=== PATIENT | male | born 1980 | race Caucasian/White ===

== ENCOUNTER 2016-11-20 10:36 | Emergency (ER) | payer BC ==
[2016-11-20 13:31] VITALS: BP 121/69
--- NOTE | 2016-11-20 13:45 | UC ---
UC General HPI - HPI Summary HPI Summary: patient started getting bodyaches, fever, headache and sinus pressure over the past three days. - History of Current Complaint Chief Complaint: UCGeneralIllness Stated Complaint: THROAT,SINUSES Time Seen by Provider: 11/20/16 13:26 Hx Obtained From: Patient Onset/Duration: Sudden Onset, Lasting Days Timing: Constant Onset Severity: Moderate Current Severity: Severe Pain Intensity: 8 Pain Location at: muscle aches and headache Associated Signs & Symptoms: Positive: Cough, Fever, Headache - Allergy/Home Medications Allergies/Adverse Reactions: Allergies Allergy/AdvReac Type Severity Reaction Status Date / Time Penicillins Allergy Intermediate Swelling Verified 11/20/16 13:31 Home Medications: Home Medications Dayquil 1 dose ONCE 11/20/16 [History Confirmed 11/20/16] PMH/Surg Hx/FS Hx/Imm Hx Previously Healthy: Yes - Surgical History Surgical History: Yes Surgery Procedure, Year, and Place: hernia - Family History Known Family History: Negative: Cardiac Disease, Hypertension - Social History Alcohol Use: Occasionally Substance Use Type: None Smoking Status (MU): Former Smoker Type: Smokeless Tobacco Amount Used/How Often: random usage, more so in summer months Length of Time of Smoking/Using Tobacco: 10 yrs Have You Smoked in the Last Year: Yes When Did the Patient Quit Smoking/Using Tobacco: 15 years ago - Immunization History Most Recent Influenza Vaccination: none Review of Systems Constitutional: Fever, Chills, Fatigue Skin: Negative Eyes: Eye Redness ENT: Sore Throat, Ear Ache, Nasal Discharge Respiratory: Cough Cardiovascular: Negative Gastrointestinal: Negative Genitourinary: Negative Motor: Negative Neurovascular: Negative Musculoskeletal: Myalgia Neurological: Headache Psychological: Negative All Other Systems Reviewed And Are Negative: Yes Physical Exam Triage Information Reviewed: Yes Appearance: Well-Nourished, Ill-Appearing, Pain Distress Vital Signs: Initial Vital Signs Temp 100.1 F 11/20/16 13:26 Pulse 108 11/20/16 13:26 Resp 17 11/20/16 13:26 BP 121/69 11/20/16 13:26 Pulse Ox 97 11/20/16 13:26 Vital Signs Reviewed: Yes Eye Exam: Normal Eyes: Positive: Conjunctiva Clear ENT Exam: Normal ENT: Positive: Normal ENT inspection, Pharyngeal erythema, Nasal congestion, TM bulging, Tonsillar swelling Dental Exam: Normal Neck exam: Normal Neck: Positive: Supple, Nontender, No Lymphadenopathy Respiratory Exam: Normal Respiratory: Positive: Chest non-tender, Lungs clear, Normal breath sounds Cardiovascular Exam: Normal Cardiovascular: Positive: RRR, No Murmur, Pulses Normal Abdominal Exam: Normal Abdomen Description: Positive: Nontender, No Organomegaly, Soft Bowel Sounds: Positive: Present Musculoskeletal Exam: Normal Musculoskeletal: Positive: Strength Intact, ROM Intact, No Edema Neurological Exam: Normal Neurological: Positive: Alert, Muscle Tone Normal Psychological Exam: Normal Skin Exam: Normal Course/Dx - Course Course Of Treatment: hx obtained, exam performed, flu swab obtained. educated on manual manuvers to drain sinuses with good relief. prednisone prescribed. does not seem to be bacterial in nature. - Differential Dx - Multi-Symptom Provider Diagnoses: viral URI. nasal congestion. fever Discharge - Discharge Plan Condition: Stable Disposition: HOME Patient Education Materials: Upper Respiratory Infection (ED) Additional Instructions: Your flu swab was negative. i recommend you continue to use tylneol or advil for pain and fever. Take the prednisone as prescribed. Continue using the manual sinus drainage we discussed. and increas fluid intake over the next few days. Salt water gargles for throat.
== END 2016-11-20 14:12 | disposition home or self-care (01) ==
LOC: UCCORT 10:36
DX: J06.9 Acute upper respiratory infection, unspecified (principal); R50.9 Fever, unspecified; R09.81 Nasal congestion; Z88.0 Allergy status to penicillin; Z87.891 Personal history of nicotine dependence
CPT/HCPCS: 87502; 99212; G0463

== ENCOUNTER 2017-08-09 19:32 | Emergency (ER) | payer BC | END 2017-08-09 20:48 | disposition left against medical advice (07) | LOC: UCCORT 19:32 | DX: R52 Pain, unspecified (principal); Z53.21 Procedure and treatment not carried out due to patient leaving prior to being seen by health care provider ==

== ENCOUNTER 2019-01-23 17:19 | Emergency (ER) | payer BC ==
[2019-01-23 17:29] VITALS: BP 140/76
[2019-01-23] MEDS ORDERED: Acetaminophen TAB* 325 MG PO ONE (17:38)
--- NOTE | 2019-01-23 17:39 | UC ---
Head Injury HPI - HPI Summary HPI Summary: Patient was lifting weights , dropped a 45 pound weigh on the outside of his right eye. pain, swelling, laceration to the area. - History Of Current Complaint Chief Complaint: UCTrauma Stated Complaint: RT EYE/FACIAL INJURY Hx Obtained From: Patient Onset/Duration: Sudden Onset, Lasting Minutes Severity Currently: Severe Severity Initially: Severe Pain Intensity: 8 Character: Throbbing, Pressure Aggravating Factor(s): Nothing Alleviating Factor(s): Nothing - Allergies/Home Medications Allergies/Adverse Reactions: Allergies Allergy/AdvReac Type Severity Reaction Status Date / Time Penicillins Allergy Swelling Verified 01/23/19 17:29 Home Medications: Home Medications Omeprazole 40 mg PO DAILY 01/23/19 [History Confirmed 01/23/19] PMH/Surg Hx/FS Hx/Imm Hx Previously Healthy: Yes - Surgical History Surgical History: Yes Surgery Procedure, Year, and Place: hernia - Family History Known Family History: Negative: Cardiac Disease, Hypertension - Social History Alcohol Use: Occasionally Substance Use Type: None Smoking Status (MU): Former Smoker Type: Smokeless Tobacco Amount Used/How Often: random usage, more so in summer months Length of Time of Smoking/Using Tobacco: 10 yrs Have You Smoked in the Last Year: Yes When Did the Patient Quit Smoking/Using Tobacco: 15 years ago - Immunization History Most Recent Influenza Vaccination: none Review of Systems All Other Systems Reviewed And Are Negative: Yes Constitutional: Positive: Negative Skin: Positive: Other - laceration Eyes: Positive: Negative ENT: Positive: Negative Respiratory: Positive: Negative Cardiovascular: Positive: Negative Gastrointestinal: Positive: Negative Genitourinary: Positive: Negative Motor: Positive: Negative Neurovascular: Positive: Negative Musculoskeletal: Positive: Edema - around right eye, Neurological: Positive: Headache, Other - PERRLA, EOMI, Psychological: Positive: Negative Is Patient Immunocompromised?: No Physical Exam Triage Information Reviewed: Yes Appearance: Well-Appearing, Well-Nourished, Pain Distress Vital Signs: Initial Vital Signs Temp 98.7 F 01/23/19 17:26 Pulse 92 01/23/19 17:26 Resp 16 01/23/19 17:26 BP 140/76 01/23/19 17:26 Pulse Ox 98 01/23/19 17:26 Vital Signs Reviewed: Yes Eyes: Positive: Other: - laceration to lower eye lid, golbe is intact, EMOI, PERRLA, no hyphema noted, pain over the zygomatic arch ENT: Positive: Pharynx normal, Nasal drainage - clear, TMs normal Dental Exam: Normal Neck exam: Normal Neck: Positive: Supple, Nontender, No Lymphadenopathy Respiratory Exam: Normal Respiratory: Positive: Chest non-tender, Lungs clear, Normal breath sounds Cardiovascular Exam: Normal Cardiovascular: Positive: RRR, No Murmur, Pulses Normal Abdominal Exam: Normal Musculoskeletal Exam: Normal Neurological Exam: Normal Neurological: Positive: Alert Psychological Exam: Normal Skin: Positive: Other - 3 cm laceration under the right eye Head Injury Course/Dx - Course Course Of Treatment: hx obtained, exam performed ,meds reviewed, ct of orbit obtained. Discharge - Discharge Plan Referrals: Won Schulte MD [Primary Care Provider] -
[2019-01-23] MEDS ORDERED: Lidocaine 1%* 5 ML VIAL INJ ONE (18:31)
--- NOTE | 2019-01-23 18:32 | UC ---
Head Injury HPI - HPI Summary HPI Summary: 38-year-old male comes in with a chief complaint of facial injury. He actually dropped a weight on his face just prior to arrival. It struck him just below into the right of the right I. He does have a laceration that the bleeding is controlled with direct pressure. No complaint of any blurred vision. No loss of consciousness. - History Of Current Complaint Chief Complaint: UCTrauma Stated Complaint: RT EYE/FACIAL INJURY Time Seen by Provider: 01/23/19 17:53 Pain Intensity: 8 - Allergies/Home Medications Allergies/Adverse Reactions: Allergies Allergy/AdvReac Type Severity Reaction Status Date / Time Penicillins Allergy Swelling Verified 01/23/19 17:29 Home Medications: Home Medications Omeprazole 40 mg PO DAILY 01/23/19 [History Confirmed 01/23/19] PMH/Surg Hx/FS Hx/Imm Hx Previously Healthy: Yes - Surgical History Surgical History: Yes Surgery Procedure, Year, and Place: hernia - Family History Known Family History: Negative: Cardiac Disease, Hypertension - Social History Alcohol Use: Occasionally Substance Use Type: None Smoking Status (MU): Former Smoker Type: Smokeless Tobacco Amount Used/How Often: random usage, more so in summer months Length of Time of Smoking/Using Tobacco: 10 yrs Have You Smoked in the Last Year: Yes When Did the Patient Quit Smoking/Using Tobacco: 15 years ago - Immunization History Most Recent Influenza Vaccination: none Review of Systems All Other Systems Reviewed And Are Negative: Yes Constitutional: Positive: Negative Skin: Positive: Other - SEE HPI Eyes: Positive: Negative ENT: Positive: Negative Respiratory: Positive: Negative Cardiovascular: Positive: Negative Gastrointestinal: Positive: Negative Motor: Positive: Negative Neurovascular: Positive: Negative Musculoskeletal: Positive: Negative Neurological: Positive: Negative Psychological: Positive: Negative Is Patient Immunocompromised?: No Physical Exam Triage Information Reviewed: Yes Appearance: Well-Appearing, No Pain Distress, Well-Nourished Vital Signs: Initial Vital Signs Temp 98.7 F 01/23/19 17:26 Pulse 92 01/23/19 17:26 Resp 16 01/23/19 17:26 BP 140/76 01/23/19 17:26 Pulse Ox 98 01/23/19 17:26 Vital Signs Reviewed: Yes Eye Exam: Normal Eyes: Positive: Conjunctiva Clear, Other: - PERRLA/EOMI Neck exam: Normal Neck: Positive: Supple Respiratory: Positive: No respiratory distress Musculoskeletal Exam: Normal Musculoskeletal: Positive: Strength Intact, ROM Intact Neurological Exam: Normal Neurological: Positive: Alert, Muscle Tone Normal Psychological: Positive: Age Appropriate Behavior Skin: Positive: Other - There is a 2 cm slightly irregular laceration just below the right eye into the lateral aspect. The laceration does not come to the edge of the eyelashes. I can see muscle in the laceration. The muscle appears intact. Procedures - Laceration/Wound Repair 1 Location: face - INFERIOR AND LATERAL TO RT EYE, DOES NOT INCLUDE THE EYE LID EDGE Description: Irregular Anesthesia: Local, 1.0%, Lido Length, Depth and Shape: 2 CM Betadine Prep?: No - SHUR CLENS AND STERILE SALINE Laceration/Wound Explored: clean Closure: Single Layer Debridement: NONE Suture Type: Prolene - 6-0 Number of Sutures: 3 Layer Closure?: No Sterile Dressing Applied?: No Head Injury Course/Dx - Differential Dx/Diagnosis Provider Diagnosis: Facial laceration, Facial contusion, Head injury Discharge - Sign-Out/Discharge Documenting (check all that apply): Patient Departure All imaging exams completed and their final reports reviewed: Yes - Discharge Plan Condition: Stable Disposition: HOME Patient Education Materials: Head Injury (ED), Facial Laceration (ED) Referrals: Won Schulte MD [Medical Doctor] - [facility] [Provider Group] Additional Instructions: FOLLOW UP WITH YOUR DOCTOR. SUTURES OUT IN 5 DAYS. FOLLOW UP WITH OPHTHALMOLOGY, [facility] [place], IF YOU HAVE ANY VISION PROBLEMS. GET RECHECKED FOR ANY WORSENING OF YOUR CONDITION; PROBLEMS WITH VISION, SIGNS OF INFECTION, CONCUSSION SYMPTOMS, WEAKNESS, NUMBNESS OR QUESTIONS OR CONCERNS. - Billing Disposition and Condition Condition: STABLE Disposition: Home
== END 2019-01-23 19:47 | disposition home or self-care (01) ==
LOC: UCCORT 17:19
DX: S01.81XA Laceration without foreign body of other part of head, initial encounter (principal); S09.90XA Unspecified injury of head, initial encounter; S00.83XA Contusion of other part of head, initial encounter; Z87.891 Personal history of nicotine dependence; Z88.0 Allergy status to penicillin; W20.8XXA Other cause of strike by thrown, projected or falling object, initial encounter; Y92.9 Unspecified place or not applicable
CPT/HCPCS: 12011; 70450; 70480; 99211; A9270-GY; G0463

== ENCOUNTER 2019-05-30 20:45 | Emergency (ER) | payer BC ==
[2019-05-30 21:04] VITALS: BP 122/72
[2019-05-30] MEDS ORDERED: DOXYcycline CAP(*) 100 MG PO ONE (21:15)
--- NOTE | 2019-05-30 21:24 | UC ---
Skin Complaint HPI - HPI Summary HPI Summary: Pt presents with c/o of tick bite to abdomen. Pt states he felt "something" on his abdomen near his bellybutton yesterday and then this evening he felt the FB was larger, he looked down and pulled "it" off and found that it was a tick. Pt is concerned about lyme disease. - History of Current Complaint Chief Complaint: UCSkin Time Seen by Provider: 05/30/19 21:13 Stated Complaint: TICK BITE Hx Obtained From: Patient Onset/Duration: Sudden Onset, Resolved Skin Exposure Onset/Duration: Hours Ago Timing: Constant Onset Severity: Mild Current Severity: Mild Pain Intensity: 0 Location: Discrete - abdomen, near umbilicus Aggravating Factor(s): Nothing Alleviating Factor(s): Other - removed tick/insect Associated Signs & Symptoms: Positive: Negative Related History: Insect Bite/Sting - Allergy/Home Medications Allergies/Adverse Reactions: Allergies Allergy/AdvReac Type Severity Reaction Status Date / Time Penicillins Allergy Swelling Verified 05/30/19 21:02 PMH/Surg Hx/FS Hx/Imm Hx Previously Healthy: Yes - Surgical History Surgical History: Yes Surgery Procedure, Year, and Place: hernia - Family History Known Family History: Negative: Cardiac Disease, Hypertension - Social History Alcohol Use: Occasionally Substance Use Type: None Smoking Status (MU): Former Smoker Type: Smokeless Tobacco Amount Used/How Often: random usage, more so in summer months Length of Time of Smoking/Using Tobacco: 10 yrs Have You Smoked in the Last Year: Yes When Did the Patient Quit Smoking/Using Tobacco: 15 years ago - Immunization History Most Recent Influenza Vaccination: none Review of Systems All Other Systems Reviewed And Are Negative: Yes Constitutional: Positive: Negative Skin: Positive: Other - tick bite and tick removed prior to arrival to clinic Eyes: Positive: Negative ENT: Positive: Negative Respiratory: Positive: Negative Cardiovascular: Positive: Negative Gastrointestinal: Positive: Negative Genitourinary: Positive: Negative Motor: Positive: Negative Neurovascular: Positive: Negative Musculoskeletal: Positive: Negative Neurological: Positive: Negative Psychological: Positive: Negative Is Patient Immunocompromised?: No Physical Exam Triage Information Reviewed: Yes Appearance: Well-Appearing Vital Signs: Initial Vital Signs Temp 97.9 F 05/30/19 21:02 Pulse 81 05/30/19 21:02 Resp 15 05/30/19 21:02 BP 122/72 05/30/19 21:02 Pulse Ox 98 05/30/19 21:02 Vital Signs Reviewed: Yes Eye Exam: Normal ENT Exam: Normal ENT: Positive: Hearing grossly normal Dental Exam: Normal Neck exam: Normal Respiratory: Positive: No respiratory distress Abdomen Description: Positive: Nontender Musculoskeletal Exam: Normal Neurological Exam: Normal Psychological Exam: Normal Skin Exam: Other - mild erythema ~ 3mm in diameter at 4 oclock position left side of umbilicus Course/Dx - Differential Diagnoses - Skin Complaint Differential Diagnoses: Tick Born Illness - Diagnoses Provider Diagnosis: Insect bite Discharge - Sign-Out/Discharge Documenting (check all that apply): Patient Departure All imaging exams completed and their final reports reviewed: No Studies - Discharge Plan Condition: Stable Disposition: HOME Patient Education Materials: Tick Bite (ED) Referrals: Twila Acosta MD [Primary Care Provider] - If Needed Additional Instructions: Please follow up with your PCP as needed. - Billing Disposition and Condition Condition: STABLE Disposition: Home
== END 2019-05-30 21:25 | disposition home or self-care (01) ==
LOC: UCCORT 20:45
DX: S30.861A Insect bite (nonvenomous) of abdominal wall, initial encounter (principal); W57.XXXA Bitten or stung by nonvenomous insect and other nonvenomous arthropods, initial encounter; Y92.9 Unspecified place or not applicable; Z87.891 Personal history of nicotine dependence
CPT/HCPCS: 99212; A9270-GY; G0463

== ENCOUNTER 2019-09-14 13:24 | Emergency (ER) | payer BC ==
[2019-09-14 13:42] VITALS: BP 131/71
--- NOTE | 2019-09-14 13:58 | UC ---
Neck Pain HPI - HPI Summary HPI Summary: 38 year old male presents after going to the gym at approx 0700 today, was lying on weight bench, arched his back and "pushed head into weight bench". He did not lift any weights nor hit his head. He notes "weird noises" and now has stiffness in the neck and burning sensation into left shoulder muscles. No headache, weakness nor radicular pain. - History of Current Complaint Chief Complaint: UCGeneralIllness Stated Complaint: NECK INJURY Time Seen by Provider: 09/14/19 13:52 Hx Obtained From: Patient Onset/Duration Of Injury/Symptoms: Hours - 7 hours ago Pain Intensity: 9 Character: Sharp, Burning Aggravating Factors: Movement Associated Signs & Symptoms: Negative: Swelling, Redness, Bruising, Weakness, Headache - Risk Factors Meningitis Risk Factors: Negative - Allergies/Home Medications Allergies/Adverse Reactions: Allergies Allergy/AdvReac Type Severity Reaction Status Date / Time Penicillins Allergy Swelling Verified 09/14/19 13:39 PMH/Surg Hx/FS Hx/Imm Hx Previously Healthy: Yes - Surgical History Surgical History: Yes Surgery Procedure, Year, and Place: hernia - Family History Known Family History: Negative: Cardiac Disease, Hypertension - Social History Alcohol Use: Occasionally Substance Use Type: None Smoking Status (MU): Former Smoker Type: Smokeless Tobacco Amount Used/How Often: random usage, more so in summer months Length of Time of Smoking/Using Tobacco: 10 yrs Have You Smoked in the Last Year: Yes When Did the Patient Quit Smoking/Using Tobacco: 15 years ago - Immunization History Most Recent Influenza Vaccination: none Review of Systems All Other Systems Reviewed And Are Negative: Yes Constitutional: Positive: Negative Skin: Negative: Rash, Bruising Eyes: Positive: Negative ENT: Positive: Negative Respiratory: Negative: Shortness Of Breath, Cough Cardiovascular: Negative: Palpitations, Chest Pain Gastrointestinal: Negative: Abdominal Pain, Vomiting, Diarrhea, Nausea Genitourinary: Positive: Negative Motor: Negative: Weakness Neurovascular: Negative: Decreased Sensation, Decreased Pulses Musculoskeletal: Positive: Decreased ROM - with flexion and extension of neck. Neurological: Positive: Other - buring into right shoulder.. Negative: Headache , Weakness, Paresthesia, Numbness Psychological: Positive: Negative Is Patient Immunocompromised?: No Physical Exam Triage Information Reviewed: Yes Appearance: Well-Nourished, Pain Distress Vital Signs: Initial Vital Signs Temp 98.2 F 09/14/19 13:40 Pulse 81 09/14/19 13:40 Resp 18 09/14/19 13:40 BP 131/71 09/14/19 13:40 Pulse Ox 98 09/14/19 13:40 Vital Signs Reviewed: Yes Eye Exam: Normal ENT: Positive: Normal ENT inspection Neck: Positive: Supple, Tenderness @ - left of midline and over left trapezius muscles. Respiratory: Positive: Chest non-tender, Lungs clear, Normal breath sounds Cardiovascular: Positive: RRR, No Murmur Musculoskeletal: Positive: Strength Intact - bilaterally upper extremities and lower extremities., ROM Limited @ - neck with flexion and extension. Able to rotate left and right without difficulty. Neurological: Positive: Alert, Muscle Tone Normal Psychological Exam: Normal Skin Exam: Normal Diagnostics - Radiology No standard instances Radiology Interpretation Completed By: Radiologist Summary of Radiographic Findings: Stone Circular Sawyer: Merrill Cordero Daniel, ( [id number]) Lens And Frames Prescription Clerk: SANTIAGO, (NUANCE) Report Date: 09/14/2019 14:03: 00 Report Status: Final Start of Report Content Patient Name: FINA SCOTT Medical Record#: [id number] Ordering Physician: Marcell Barroso MD Acct.#: [id number] : 1980 Age: 38 Sex: M Location: [facility] Exam Date: 09/14/19 1403 ADM Status: REG ER Order Information: SP CERVICAL 4+VWS Accession Number: [id number] CPT: 85744 HISTORY: cervcal pain that started this morning COMPARISONS: None relevant available at the time of dictation. VIEWS: 5, Frontal, lateral, open-mouth odontoid, and bilateral oblique views of the cervical spine. FINDINGS: The cervical spine is visualized from the skull base through C7-T1. ALIGNMENT: There is straightening of the normal cervical lordosis. VERTEBRAL BODIES: The odontoid process is intact. The atlantoaxial intervals are symmetric. JOINTS: There is no subluxation or dislocation. The facet joints are unremarkable. INTERVERTEBRAL DISCS: There is mild loss of intervertebral disc height. SOFT TISSUE: The prevertebral soft tissues are normal. OTHER: The skull base is normal. The lung apices are clear. IMPRESSION: STRAIGHTENING OF THE CERVICAL LORDOSIS. MILD DEGENERATIVE DISC DISEASE. < Electronically signed by Merrill Cordero MD in OV> 09/14/191421 Dictated By : Merrill Cordero MD Dictated Date/Time: 09/14/191420 Transcribed Date/Time : 09/14/191420 Copy to: CC:Twila Acosta MD; Marcell Barroso MD Imaging - [facility] [address] [place] [address] ph ([phone]) ph ([phone]) ph ([phone]) ===== End of Report Content Neck Pain Course/Dx - Differential Dx/Diagnosis Provider Diagnosis: Acute cervical sprain Discharge ED - Sign-Out/Discharge Documenting (check all that apply): Patient Departure All imaging exams completed and their final reports reviewed: Yes - Discharge Plan Condition: Stable Disposition: HOME Prescriptions: Cyclobenzaprine (NF) [Cyclobenzaprine 5 MG (NF)] 5 mg PO TID PRN #30 tab PRN Reason: Spasms - Neck Ibuprofen TAB* [Motrin TAB* 800 MG] 800 mg PO Q6H PRN #30 tab PRN Reason: Pain - Moderate Patient Education Materials: Acute Neck Pain (ED) Referrals: Twila Acosta MD [Primary Care Provider] - Additional Instructions: Recommend heating pad and joel massage of left posterior shoulder with a muscle rub. Take ibuprofen 800mg and muscle relaxer every 6-8 hours as needed for pain. If pain worsens or if pain radiates down your left arm, follow-up with your primary care physician. - Billing Disposition and Condition Condition: STABLE Disposition: Home
== END 2019-09-14 14:41 | disposition home or self-care (01) ==
LOC: UCCORT 13:24
DX: S13.9XXA Sprain of joints and ligaments of unspecified parts of neck, initial encounter (principal); M50.30 Other cervical disc degeneration, unspecified cervical region; Z88.0 Allergy status to penicillin; Z87.891 Personal history of nicotine dependence; X50.1XXA Overexertion from prolonged static or awkward postures, initial encounter; Y92.9 Unspecified place or not applicable
CPT/HCPCS: 72050; 99212; G0463